=== PATIENT | male | born 1950 | race Caucasian/White ===

== ENCOUNTER → 2016-12-19 | Day surgery (SDC) | payer BC, MEDICARE ==
[~2016-12-19] MED LIST: FUROSEMIDE40 MG PO; K-DUR20 ME1; LISINOPRIL20 MG; LISINOPRIL20 MG PO; LODINE400 M1 PO; LOVAZA1 G; METOPROLOL TAR25 MG PO; TOPROL XL50 MG PO; VYTORIN 10-40 M1 TAB PO
--- NOTE | ~2016-12-19 | OR ---
Unit #: [id number] #: [id number] Patient: FERNY HARTMAN [id number] [address] [place], [place] [address] [id number] O MR#: [id number] NAME: FERNY HARTMAN ROOM: Date of Procedure: 12/19/2016 Admission Date: 12/19/2016 Surgeon: Gabriele Murphy M.D. : 1950 Attending Physician: Gabriele Murpyh M.D. Primary Care Physician: Bebeto Scott M.D. OPERATIVE REPORT PREOPERATIVE DIAGNOSIS Right-sided abdominal pain. POSTOPERATIVE DIAGNOSIS Right-sided abdominal pain. PROCEDURE PERFORMED Colonoscopy to terminal ileum. ANESTHESIA Monitored anesthesia care. FINDINGS The patient had a normal terminal ileum and normal colon. SPECIMENS None. COMPLICATIONS None apparent. CONDITION The patient tolerated the procedure well. INDICATIONS FOR PROCEDURE The patient is a 66-year-old white male, who has had persistent right-sided abdominal pain. He had a CT scan x2 at the end of 07/2016, which showed no significant abnormality. He presents at this time for evaluation by colonoscopy. DESCRIPTION OF PROCEDURE After obtaining informed consent, the patient was brought to the endoscopy suite. After adequate time of monitored anesthesia care, the colonoscope was placed through the anus and slowly advanced to the level of the cecum without difficulty with the lumen always in view. The cecum was normal as was the ileocecal valve. We were able to pass through the ileocecal valve into the terminal ileum. The terminal ileum was normal as well. The ascending colon was normal as was the hepatic flexure, transverse colon, splenic flexure, descending colon, sigmoid colon, and rectum. On retroflexing in the rectum to the anorectal junction, the patient was found to have no significant abnormality. The scope was removed without difficulty. On digital examination, there was good sphincter tone. No Unit #: [id number] #: [id number] Patient: FERNY HARTMAN masses palpable. The patient went from the endoscopy to the recovery area in stable condition. RECOMMENDATIONS High-fiber diet, lots of liquids, tucks or wipes p.r.n. Follow up as needed. Dictated by... Maury Croft/louisl TD: 12/19/2016 10:47 JOB #: [id number] CC: [facility] [place] [facility] OPERATIVE REPORT X Gabriele Murphy MD PROCEDURE OPERATIVE NOTE
== END | disposition home or self-care (01) ==
LOC: COPS 05:36
PROVIDERS: Surgery
PROC: 0DJD8ZZ Inspection of Lower Intestinal Tract, Via Natural or Artificial Opening Endoscopic (ICD-10-PCS; principal; 2016-12-19 07:30)
DX: R10.9 Unspecified abdominal pain (principal); N20.0 Calculus of kidney; K21.9 Gastro-esophageal reflux disease without esophagitis; R13.10 Dysphagia, unspecified; K59.00 Constipation, unspecified; K92.1 Melena; I51.7 Cardiomegaly; F41.9 Anxiety disorder, unspecified; E66.01 Morbid (severe) obesity due to excess calories; Z68.41 Body mass index [BMI] 40.0-44.9, adult; I11.0 Hypertensive heart disease with heart failure; I50.9 Heart failure, unspecified; G47.30 Sleep apnea, unspecified; I42.9 Cardiomyopathy, unspecified; E78.00 Pure hypercholesterolemia, unspecified; E78.5 Hyperlipidemia, unspecified; R73.09 Other abnormal glucose; R33.9 Retention of urine, unspecified; F17.200 Nicotine dependence, unspecified, uncomplicated; Z72.89 Other problems related to lifestyle; Z79.899 Other long term (current) drug therapy; Z98.890 Other specified postprocedural states; Z88.8 Allergy status to other drugs, medicaments and biological substances
CPT/HCPCS: J2250